=== PATIENT | female | born 1960 | race Caucasian/White ===

== ENCOUNTER 2024-12-25 12:37 | Emergency (ER) | payer OTHER, MEDICARE, SELFPAY ==
--- NOTE | ~2024-12-25 | XR_ITS ---
EXAMINATION: XR KNEE 3 VIEWS LEFT HISTORY: fall, pain COMPARISON: There are no prior studies available for comparison. FINDINGS: Four views of the left knee are submitted. The bones are osteopenic. There is no fracture or dislocation. There is mild narrowing of the medial compartment. The soft tissues are unremarkable. There is no joint effusion. XR/XR knee LT 3V IMPRESSION: Mild narrowing of the medial compartment. Electronically signed by: Barrett Roberts MD 12/25/2024 02:48 PM [facility]
--- NOTE | ~2024-12-25 | XR_ITS ---
EXAMINATION: XR HIP 1 VIEW LEFT WITH PELVIS HISTORY: fall, pain COMPARISON: There are no prior studies for comparison. FINDINGS: A single AP view of the pelvis and two views of the left hip are submitted. Osseous mineralization is normal. There is no fracture or dislocation. The joint space is maintained. The soft tissues are unremarkable. XR/XR hip LT w PEL 1V IMPRESSION: Unremarkable examination of the left hip. Electronically signed by: Barrett Roberts MD 12/25/2024 02:47 PM EST
--- NOTE | ~2024-12-25 | CT_ITS ---
EXAMINATION: CT CERVICAL SPINE WITHOUT CONTRAST CLINICAL INFORMATION: Fall, pain COMPARISON: None available. TECHNIQUE: Spiral CT examination of the cervical spine performed in axial plane without contrast. Sagittal, coronal, and thin section axial reformatted images were constructed from the axial data set. This CT examination was performed using dose optimization techniques as appropriate, variously including the following: *Automated exposure control *Adjustment of mA and/or kV according to patient size (this includes techniques or standardized protocols for targeted exams where dose is matched to indication/reason for exam; i.e. extremities or head) *Use of iterative reconstruction technique FINDINGS: There is a mild right convex scoliosis. There is straightening of the normal lordosis. No fracture, traumatic subluxation, compression deformity, or suspicious bone lesion. Normal facet alignment. Craniocervical junction is intact. C1-2 articulation is intact. Moderate disc degeneration C5-6. Otherwise mild degenerative disc changes at the other levels. Multilevel mild to moderate degenerative facet changes with associated uncinate spurring, most significant at C3-4 and C4-5. No evidence of significant canal stenosis or large disc herniation. No prevertebral soft tissue abnormality. Moderate calcification left carotid bulb. No thyroid abnormality grossly by CT. Lung apices demonstrate centrilobular emphysematous changes and mild associated scarring. CT/CT cervical spine wo IV con IMPRESSION: 1. No CT evidence of acute cervical spine fracture or injury. 2. Degenerative spondylosis most significant at C5-6. Electronically signed by: Marcelino Estrella MD 12/25/2024 03:15 PM [facility] [place]
--- NOTE | ~2024-12-25 | CT_ITS ---
EXAMINATION: CT HEAD WITHOUT CONTRAST CLINICAL INFORMATION: Fall, pain. COMPARISON: None available. TECHNIQUE: Contiguous axial imaging was performed from the skull base to vertex without intravenous administration of contrast. This CT examination was performed using dose optimization techniques as appropriate, variously including the following: *Automated exposure control *Adjustment of mA and/or kV according to patient size (this includes techniques or standardized protocols for targeted exams where dose is matched to indication/reason for exam; i.e. extremities or head) *Use of iterative reconstruction technique FINDINGS: There is no evidence of intracranial hemorrhage or extra-axial fluid collection. There is no mass effect, or edema. No CT evidence of acute territorial infarct. Ventricles, sulci, and cisterns are normal in size and configuration for patient age. No hydrocephalus. No midline shift. 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 Moderate foci of confluent white matter hypoattenuation in the cerebral white matter, keeping with small vessel ischemic changes. Mild atheromatous calcification of the bilateral carotid siphons and V4 segments vertebral arteries bilaterally. Globes and orbital contents image normally. No extracranial soft tissue abnormalities. The paranasal sinuses, mastoid air cells, and tympanic cavities are normally aerated. No suspicious bony abnormalities. No fractures seen. CT/CT head/brain wo IV con IMPRESSION: No acute intracranial abnormality. Electronically signed by: Marcelino Estrella MD 12/25/2024 03:10 PM [facility] [place]
[2024-12-25 13:16] VITALS: BP 182/74; PULSE 64; RESP 18; TEMP 36.4; O2SAT 96; BMI 27.5
--- NOTE | 2024-12-25 13:19 | ED_ITS ---
HPI - General Adult General Chief complaint: Fall Stated complaint: fall Time Seen by Provider: 12/25/24 16:27 Source: patient Mode of arrival: wheelchair Limitations: no limitations History of Present Illness ED Provider: Traci Smith PA-C HPI narrative: Patient is a 64 year old assigned female at with no reported medical history presenting to the emergency department today with left knee pain and left hip pain after a slip and fall. Patient states that 12/20/2024 she slipped and fell. Patient states that she initially only hurt her left knee but now it is in her left hip. Patient states that she feels as though it is radiating from her left hip back into her knee and lower - she is concerned it is sciatica. Patient states that she does not regularly follow up with a primary care provider. Patient denies any head strike or loss of consciousness with the incident. Patient denies any dizziness, lightheadedness, abdominal pain, nausea, vomiting, fever, chills, blurry vision, double vision, loss of vision, chest pain, difficulty breathing, shortness of breath, back pain, night sweats, pain with urination, increased urinary frequency, increased urinary urgency, blood in her urine or stool, syncope or a near syncopal episode, bowel incontinence, bladder incontinence, or any other complaints at this time. Onset (ago): day(s) (5) Location: left (knee and hip) Exacerbating factors: movement Associated symptoms: denies other symptoms Treatments prior to arrival: other (ibuprofen - no relief) Related Data Previous Rx's ?Medication ?Instructions ?Recorded prednisone 20 mg tablet 20 mg PO DAILY 7 days #7 tabs 12/25/24 Allergies Allergy/AdvReac Type Severity Reaction Status Date / Time Iodinated Contrast Media Allergy Intermediate HIVES Verified 12/25/24 13:18 [IV DYE, IODINE CONTAINING] Sulfa (Sulfonamide Allergy Intermediate HIVES Verified 12/25/24 13:18 Antibiotics) [SULFA (SULFONAMIDE ANTIBIOTICS)] penicillin V Allergy Unknown ?hives Verified 12/25/24 13:18 IVP Dye Allergy Unknown ?hives Uncoded 03/03/16 00:00 Review of Systems Constitutional: Constitutional: Reports no additional constitutional complaints, Denies chills, Denies fever(s) and Denies night sweats Eyes: Eyes: Reports no additional eye complaints, Denies blurry vision, Denies change in vision, Denies diplopia, Denies eye discharge, Denies loss of vision and Denies eye pain ENT: Denies dizziness Cardiovascular: Cardiovascular: Reports no additional cardiovascular complaints, Denies chest pain, Denies lightheadedness, Denies Loss of Consciousness and Denies dyspnea Respiratory: Respiratory: Reports no additional respiratory complaints and Denies dyspnea Gastrointestinal: Gastrointestinal: Reports no additional gastrointestinal complaints, Denies abdominal pain, Denies melena, Denies hematochezia, Denies change in bowel habits and Denies change in stool character Genitourinary: Genitourinary: Denies hematuria, Denies urinary frequency, Denies dysuria, Denies urinary incontinence, Denies urinary hesitancy and Denies urinary urgency Musculoskeletal: Musculoskeletal: Reports no additional musculoskeletal complaints, Denies numbness and Denies tingling Comments: left knee pain left hip pain Neurologic: Denies dizziness, Denies loss of vision, Denies numbness and Denies tingling Psychiatric: Psychiatric: Reports no additional psychiatric complaints Endocrine: Endocrine: Reports no additional endocrine complaints Hematologic/Lymphatic: Hematologic/Lymphatic: Reports no additional hematologic/lymphatic complaints Allergic/Immunologic: Allergic/Immunologic: Reports no additional allergic/immunologic complaints PMFSH Past Medical History Attestation statement: The following information was validated with the patient. Source: old records reviewed and nursing notes reviewed Social History Social History Advance Directives: No Advance Directives Information Provided: Yes Do you have a plan to hurt others: No Plan Physical Exam ED Vital Signs: Vital Signs - 24 hr 12/25/24 13:16 12/25/24 16:27 12/25/24 16:45 Temperature 97.5 F 98.3 F 98.3 F Pulse Rate 64 63 63 Respiratory Rate 18 16 16 Blood Pressure 182/74 H 160/72 H 160/72 H Pulse Oximetry 96 98 98 Oxygen Delivery Method Room Air Room Air Room Air BMI result Body Mass Index 27.5 Const General: cooperative, no acute distress, alert and awake Nutritional Appearance: well nourished Orientation/consciousness: patient oriented x3 Limitations: no limitations HENMT Head: Yes normal to inspection and Yes atraumatic Ears: hearing grossly normal bilaterally and external ears normal General nose exam: Normal external nose present, no nasal discharge noted and no epistaxis Face and sinus: Yes normal facial exam, No abrasion and No laceration Mouth: Normal oral and palatal mucosa present, no drooling and no muffled voice Eyes General: appearance normal, both eyes and all related structures Periorbital: periorbital findings normal Eyelids: Yes eyelids normal Conjunctivae: conjunctivae normal Pupils: Equal, round and reactive pupils present EOM: EOMs intact bilaterally Neck Neck: Yes normal visual inspection, Yes full ROM and Yes no lymphadenopathy Chest Chest palpation & inspection: normal inspection of the chest Resp Effort & Inspection: normal respiratory effort and able to speak in complete sentences GI Inspection: Yes normal to inspection Neuro General: patient oriented x3 and moves all extremities Cranial nerves: Yes Equal, round and reactive pupils present Cognition (Neuro): normal cognition Extrem General: Yes normal to inspection, Yes full ROM and Yes capillary refill normal Psych Appearance: grossly normal Mental Status: mental status grossly normal Affect: normal affect Attitude: cooperative Thought process: Normal thought process present Thought content: Normal thought content present Insight: Good insight present (Psych) Course Course Course Narrative: RME performed by Traci Smith PA-C. Patient is a 64 year old assigned fe male at presenting to the emergency department with left knee and left hip pain after a slip and fall. Denies head strike. Detailed physical exam and review of systems are deferred to the physician assistant primary care. Imaging ordered. Patient placed back in the waiting room pending room availability and results. Medications Administered Discontinued Medications Generic Name Dose Route Start Last Admin Trade Name Freq PRN Reason Stop Dose Admin Ketorolac Tromethamine 15 mg 12/25/24 16:29 12/25/24 16:35 Ketorolac Tromethamine 15 Mg/Ml Vial IM 12/25/24 16:30 15 mg ONCE ONE Administration Methylprednisolone Sodium Succinate 60 mg 12/25/24 16:29 12/25/24 16:34 Methylprednisolone Sod Succ 125 Mg/2 Ml Vial IM 12/25/24 16:30 60 mg ONCE ONE Administration Medical Decision Making Medical Decision Making MDM Narrative: Patient is a 64 year old assigned female at with no reported medical history presenting to the emergency department today with left knee pain and left hip pain after a slip and fall. Patient's physical exam was unremarkable. Patient's CT head and c-spine showed no acute process. Patient's left knee and left hip / pelvis x-rays showed no acute process. Patient's clinical present ation is most consistent with left hip pain, left knee pain, and sciatic type pain. I explained my physical exam findings as well as all test results to the patient. I answered all questions asked by the patient. I stressed the importance of the patient taking her medication as directed (either prescribed or as the over the counter packaging recommends). I stressed the importance of the patient following up with her primary care provider. I stressed the importance of the patient returning to the emergency department immediately if her symptoms were to worsen or if she were to develop any dizziness, shortness of breath, difficulty breathing, chest pain, blurry vision, loss of vision, nausea, vomiting, abdominal pain, fever, chills, back pain, or any other complaints. Patient verbalized agreement and understanding with this treatment plan and discharge. Differential Diagnosis Differential Diagnoses: The differential diagnosis associated with the presentation includes Left knee pain Left knee sprain Left knee strain Left hip pain Sciatica Admission/Observation Consideration of admission/observation: Escalation of care including admission/observation considered Patient would have been admitted to the hospital had his work up had any finding s where hospital admission was appropriate and his clinical presentation warranted hospital admission. Independent Interpretation I performed an independent interpretation of an: Plain X-Ray and CT Scan Interpretation: My interpretation is in agreement with the radiologist's impression of these imaging studies. Report Number: [id number]: Total DLP = 991.91 mGy-cm EXAMINATION: CT CERVICAL SPINE WITHOUT CONTRAST CLINICAL INFORMATION: Fall, pain COMPARISON: None available. TECHNIQUE: Spiral CT examination of the cervical spine performed in axial plane without contrast. Sagittal, coronal, and thin section axial reformatted images were constructed from the axial data set. This CT examination was performed using dose optimization techniques as appropriate, variously including the following: *Automated exposure control *Adjustment of mA and/or kV according to patient size (this includes techniques or standardized protocols for targeted exams where dose is matched to indication/reason for exam; i.e. extremities or head) *Use of iterative reconstruction technique FINDINGS: There is a mild right convex scoliosis. There is straightening of the normal lordosis. No fracture, traumatic subluxation, compression deformity, or suspicious bone lesion. Normal facet alignment. Craniocervical junction is intact. C1-2 articulation is intact. Moderate disc degeneration C5-6. Otherwise mild degenerative disc changes at the other levels. Multilevel mild to moderate degenerative facet changes with associated uncinate spurring, most significant at C3-4 and C4-5. No evidence of significant canal stenosis or large disc herniation. No prevertebral soft tissue abnormality. Moderate calcification left carotid bulb. No thyroid abnormality grossly by CT. Lung apices demonstrate centrilobular emphysematous changes and mild associated scarring. CT/CT cervical spine wo IV con IMPRESSION: 1. No CT evidence of acute cervical spine fracture or injury. 2. Degenerative spondylosis most significant at C5-6. Electronically signed by: Marcelino Estrella MD 12/25/2024 03:15 PM EST RP Dictated By: Marcelino Estrella MD Signed By: Electronically signed by Marcelino Estrella MD 12/25/24 1515 EXAMINATION: XR HIP 1 VIEW LEFT WITH PELVIS HISTORY: fall, pain COMPARISON: There are no prior studies for comparison. FINDINGS: A single AP view of the pelvis and two views of the left hip are submitted. Osseous mineralization is normal. There is no fracture or dislocation. The joint space is maintained. The soft tissues are unremarkable. XR/XR hip LT w PEL 1V IMPRESSION: Unremarkable examination of the left hip. Electronically signed by: Barrett Roberts MD 12/25/2024 02:47 PM EST RP Dictated By: Barrett Roberts MD Signed By: Electronically signed by Barrett Roberts MD 12/25/24 1447 EXAMINATION: XR KNEE 3 VIEWS LEFT HISTORY: fall, pain COMPARISON: There are no prior studies available for comparison. FINDINGS: Four views of the left knee are submitted. The bones are osteopenic. There is no fracture or dislocation. There is mild narrowing of the medial compartment. The soft tissues are unremarkable. There is no joint effusion. XR/XR knee LT 3V IMPRESSION: Mild narrowing of the medial compartment. Electronically signed by: Barrett Roberts MD 12/25/2024 02:48 PM [facility] [place] Dictated By: Barrett Roberts MD Signed By: Electronically signed by Barrett Roberts MD 12/25/24 1448 Report Number: [id number]: Total DLP = 0.00 mGy-cm EXAMINATION: CT HEAD WITHOUT CONTRAST CLINICAL INFORMATION: Fall, pain. COMPARISON: None available. TECHNIQUE: Contiguous axial imaging was performed from the skull base to vertex without intravenous administration of contrast. This CT examination was performed using dose optimization techniques as appropriate, variously including the following: *Automated exposure control *Adjustment of mA and/or kV according to patient size (this includes techniques or standardized protocols for targeted exams where dose is matched to indication/reason for exam; i.e. extremities or head) *Use of iterative reconstruction technique FINDINGS: There is no evidence of intracranial hemorrhage or extra-axial fluid collection. There is no mass effect, or edema. No CT evidence of acute territorial infarct. Ventricles, sulci, and cisterns are normal in size and configuration for patient age. No hydrocephalus. No midline shift. 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 Moderate foci of confluent white matter hypoattenuation in the cerebral white matter, keeping with small vessel ischemic changes. Mild atheromatous calcification of the bilateral carotid siphons and V4 segments vertebral arteries bilaterally. Globes and orbital contents image normally. No extracranial soft tissue abnormalities. The paranasal sinuses, mastoid air cells, and tympanic cavities are normally aerated. No suspicious bony abnormalities. No fractures seen. CT/CT head/brain wo IV con IMPRESSION: No acute intracranial abnormality. Electronically signed by: Marcelino Estrella MD 12/25/2024 03:10 PM EST Dictated By: Marcelino Estrella MD Signed By: Electronically signed by Marcelino Estrella MD 12/25/24 0610 Radiology Impression Discussion of test interpretation with radiology: I have reviewed the radiologist's reading. Discharge Plan Discharge Clinical Impression: Fall, Sciatica Patient Disposition: Home, Self-Care Instructions: Sciatica (ED), Fall Prevention (ED), Lower Back Exercises (ED) Additional Instructions: Follow up with your primary care provider. Return to the emergency department immediately if your symptoms worsen or if you develop any dizziness, shortness of breath, difficulty breathing, chest pain, blurry vision, loss of vision, nausea, vomiting, abdominal pain, fever, chills, back pain, or any other complaints. Prescriptions: New prednisone 20 mg tablet 20 mg PO DAILY 7 Days Qty: 7 0RF Referrals: [facility] [Provider Group] (Call to establish and follow up with a primary care provider. If you already have a primary care provider, please follow up with them.) [facility] (Call to establish and follow up with a primary care provider. If you already have a primary care provider, please follow up with them.) [facility]] (Call to establish and follow up with a primary care provider. If you already have a primary care provider, please follow up with them.) [facility] [[facility]] (Call to establish and follow up with a primary care provider. If you already have a primary care provider, please follow up with them.) Stand Alone Forms: Work/School Release Interventions: ED Discharge Assessment Last Done: 12/25/24 16:45 Discharge Date/Time: 12/25/24 16:54 Print Language: Polish
[2024-12-25 16:27] VITALS: BP 160/72; PULSE 63; RESP 16; TEMP 36.8; O2SAT 98
[2024-12-25] MEDS: methylPREDNISolone Sod Succ 125 MG/2 ML VIAL 60 MG IM (16:34)
[2024-12-25] MEDS: Ketorolac Tromethamine 15 MG/ML VIAL IM (16:35)
--- NOTE | 2024-12-25 16:44 | PC.NURSE ---
pt reeval'd by provider, vss, plan for medication and discharge. pt medicated per JAN for 10/10 back pain/
[2024-12-25 16:45] VITALS: BP 160/72; PULSE 63; RESP 16; TEMP 36.8; O2SAT 98
== END 2024-12-25 16:54 | disposition home or self-care (01) ==
LOC: HO.ED 16:49
PROVIDERS: Emergency Provider Emergency Medicine
DX: M54.32 Sciatica, left side (principal); M25.562 Pain in left knee; M25.552 Pain in left hip; Z91.81 History of falling
CPT/HCPCS: 70450; 72125; 73502; 73562; 96372; 99283; 99284; J1885; J2919

== ENCOUNTER → 2024-12-25 13:19 | Outpatient (BNV) | payer SELFPAY | PROVIDERS: Visit Provider Radiology Diagnostic Radiology | DX: M54.2 Cervicalgia (principal); R51.9 Headache, unspecified; M25.552 Pain in left hip; M25.562 Pain in left knee | CPT/HCPCS: 70450; 72125; 73502; 73562 ==